=== PATIENT | male | born 1985 | race Caucasian/White ===

== ENCOUNTER 2022-08-07 17:34 | Emergency (ER) | payer MEDICAID ==
[~2022-08-07] VITALS: Ht 162.6 cm; Wt 74.8 kg
[2022-08-07 17:47] VITALS: BP 137/85
[2022-08-07] MEDS ORDERED: MECLIZINE 25 MG TAB PO ONE (17:50)
[2022-08-07] MEDS ORDERED: MECLIZINE 25 MG TAB ONE (17:53)
[2022-08-07 18:10] LABS: BASOPHILS % (AUTO) 0.3 % (0.0-2.0); EOSINOPHILS % (AUTO) 0.1 % (0.0-4.0); HEMATOCRIT 48.2 % (36-52); HEMOGLOBIN 16.4 g/dL (12.0-18.0); LYMPHOCYTES # (AUTO) 1.6 K/uL (2.0-11.5); LYMPHOCYTES % (AUTO) 20.8 % (20.5-51.1); MEAN CORPUSCULAR HEMOGLOBIN 30 pg (27-31); MEAN CORPUSCULAR HGB CONC 34 g/dL (33-37); MEAN CORPUSCULAR VOLUME 86.9 fL (80-94); MONOCYTES # (AUTO) 0.3 K/uL (0.8-1.0); NEUTROPHILS # (AUTO) 5.7 K/uL (1.8-7.7); NEUTROPHILS % (AUTO) 74.8 % (42.2-75.2); PLATELET COUNT (AUTO) 214 K/uL (140-450); RED BLOOD CELL COUNT(AUTO) 5.54 MIL/uL (4.20-6.10); RED CELL DISTRIBUTION WIDTH 13.2 % (11.6-13.7); WHITE BLOOD COUNT (AUTO) 7.6 K/uL (4.8-10.8)
[2022-08-07 18:45] LABS: ANION GAP 14.1 (8-16); CARBON DIOXIDE 27.3 mmol/L (21-32); CREATININE 0.8 mg/dL (0.6-1.3); POTASSIUM 4.4 mmol/L (3.5-5.1)
[2022-08-07] MEDS ORDERED: MECL-303 PO (19:28)
[2022-08-07 20:00] VITALS: BP 130/85
== END 2022-08-07 20:00 | disposition home or self-care (01) ==
LOC: MED 17:34
DX: R42 Dizziness and giddiness (principal)
CPT/HCPCS: 36415; 80048; 85025; 99283; J8597

== ENCOUNTER 2022-12-08 16:17 | Emergency (ER) | payer MEDICAID ==
[~2022-12-08] VITALS: Ht 160 cm; Wt 84.8 kg
[~2022-12-08 16:17] MED LIST: MECL-303 PO
--- NOTE | 2022-12-08 16:20 | NUR ---
C/O URINARY BURNING X1 WEEK WITH SLIGHT [id number], DENIES ANY DISCHARGE, BACK PAIN NKA PMH: DENIES
[2022-12-08 16:24] VITALS: BP 131/85
[2022-12-08] MEDS ORDERED: NITR-141 PO (16:32)
--- NOTE | 2022-12-08 16:40 | NUR ---
Patient discharged with v/s stable. Written and verbal after care instructions ABOUT UTI given and explained. Patient alert, oriented and verbalized understanding of instructions. Ambulatory with steady gait. All questions addressed prior to discharge. ID band removed. Patient advised to follow up with PMD. Rx of MACRODANTIN given. Patient educated on indication of medication including possible reaction and side effects. Opportunity to ask questions provided and answered.
[2022-12-08 16:52] LABS: APPEARANCE,URINE CLEAR (CLEAR); BILIRUBIN,URINE NEGATIVE (NEGATIVE); BLOOD, URINE 2+ (NEGATIVE); COLOR,URINE YELLOW (YELLOW); LEUKOCYTE ESTERASE ,URINE NEGATIVE (NEGATIVE); NITRITE, URINE NEGATIVE (NEGATIVE); UGLUCOSE NEGATIVE (NEGATIVE)
[2022-12-08 17:52] LABS: WBC,URINE 0-5 /HPF (0-5)
== END 2022-12-08 16:40 | disposition home or self-care (01) ==
LOC: MED 16:17
DX: N39.0 Urinary tract infection, site not specified (principal); Z79.899 Other long term (current) drug therapy
CPT/HCPCS: 81001; 99283